=== PATIENT | male | born 1965 | race Caucasian/White ===

== ENCOUNTER 2017-05-22 02:16 | Observation (INO) | payer OTHER, SELFPAY ==
[2017-05-22] VITALS (26 sets, daily range): BP systolic 95–145; BP diastolic 55–88; PULSE 60–89; RESP 16–20; TEMP 36.6–37.3; O2SAT 93–100; BMI 24.7; BMI 23.6
--- NOTE | 2017-05-22 02:29 | XR_ITS ---
XR chest portable Ordering Physician: Alfredo Brooks MD Patient Age: 52 years: Male HISTORY: ITS.REASON: CHEST PAIN TECHNIQUE: PA and lateral chest COMPARISON :Previous PA and lateral chest film 12/14/2016. Also portable chest from September 2015 FINDINGS . Nothing definitely acute. No significant interval change. \ Mild chronic changes. Mild hyperexpansion most evident towards upper lung ascencio, right greater than left. Subtle accentuation lung markings towards the left infrahilar & left lung base region appear similar to previous studies, when technique considered. An and likely reflect mild chronic change. No convincing active infiltrate. Heart is normal size. Urinary artery stent noted. Rosa and mediastinal structures unchanged. Chest wall unremarkable. No pleural effusion. No pneumothorax. Stable calcified granuloma right lung base projected over the right fifth anterior rib and IMPRESSION: Stable chest nothing definitely acute
[2017-05-22 02:46] LABS: Basophils # 0.1 K/mm3 (0-0.2); Basophils % 0.6 % (0.1-2.0); Eosinophils # 0.3 K/mm3 (0.0-0.4); Eosinophils % 2.6 % (0.1-12.0); Hemoglobin 14.4 g/dL (14.1-18.0); Lymphocytes % 40.2 K/mm3 (10-50); Mean Corpuscular HGB Conc 32.8 g/dL (31.8-35.4); Mean Corpuscular Hemoglobin 29.3 pg (27.0-31.2); Mean Corpuscular Volume 89.4 fl (80-94); Mean Platelet Volume 8.5 fl (7.4-10.4); Monocytes # 0.7 K/mm3 (0.1-1.0); Monocytes % 5.3 % (1.7-9.3); Neutrophils # 6.4 K/mm3 (1.8-7.8); Neutrophils % 51.3 % (37.0-80.0); Platelet Count 260 K/mm3 (142-424); Red Blood Count 4.92 M/mm3 (4.60-6.20); White Blood Count 12.5 K/mm3 (4.8-10.8)
[2017-05-22 03:14] LABS: Alanine Aminotransferase 31 U/L (12-78); Albumin Level 3.8 gm/dL (3.4-5.0); Albumin/Globulin Ratio 1.2 (1.1-1.8); Alkaline Phosphatase 84 U/L (46-116); Amylase 96 U/L (25-125); Anion Gap 9.7 mEq/L (5-15); Aspartate Amino Transferase 16 U/L (15-37); Bilirubin,Total 0.4 mg/dL (0.2-1.0); Blood Urea Nitrogen 44 mg/dL (7-18); CKMB Relative Index 0.9 U/L (0-4.0); Calcium 8.9 mg/dL (8.5-10.1); Carbon Dioxide 29 mmol/L (21.0-32.0); Chloride 104 mmol/L (98-107); Creatine Kinase 76 U/L (39-308); Creatine Kinase MB 0.7 mg/ml (0.0-3.6); Creatinine Clearance Estimated 97 mL/min (0-300); Creatinine,Serum 0.98 mg/dL (0.70-1.30); Estimated Glomerular Filt Rate 80 ml/min (>60); GFR (African American) 97 ML/MIN (>60); Globulin 3.3 gm/dl (1.3-3.2); Glucose 117 mg/dL (74-106); Lipase 252 u/L (73-393); Potassium 3.7 mmoL/L (3.5-5.1); Sodium 139 mmol/L (136-145); Total Protein,Serum 7.1 gm/dL (6.4-8.2); Troponin I < 0.02 ng/ml (0.00-0.06)
[2017-05-22 03:22] LABS: Occult Blood,Stool Positive (Negative)
--- NOTE | 2017-05-22 03:34 | HMH.EDCP ---
ED Disposition Clinical Impression: Melena Chest pain Qualifiers: Chest pain type: other chest pain Qualified Code(s): R07.89 - Other chest pain Syncope Qualifiers: Syncope type: unspecified Qualified Code(s): R55 - Syncope and collapse Disposition: Admitted As Inpatient Condition on Discharge: Good Time of Disposition: 03:35 - Critical Care Critical Care Time: No Attestation: On 05/22/17, the high probability of a clinically significant, sudden or life threatening deterioration of the following system(s) required my full and direct attention, intervention and personal management. The time I documented below is in addition to time spent performing reported procedures but includes the following listed in this critical care notation. Medical Decision Making - Medical Records Medical records reviewed: Yes: I reviewed the patient's medical records. Vital Signs: 05/22/17 02:17 05/22/17 03:08 05/22/17 04:31 Temperature 97.8 F 97.8 F Temperature Source Oral Oral Pulse Rate 62 Pulse Rate [Right Brachial] 67 65 Respiratory Rate 16 16 20 Blood Pressure 130/88 Blood Pressure [Right Arm] 129/72 135/81 Blood Pressure Mean [Right Arm] 91 99 Blood Pressure Source Automatic Cuff Blood Pressure Source [Right Arm] Automatic Cuff Automatic Cuff Blood Pressure Position Supine Blood Pressure Position [Right Arm] Supine Supine 02 Sat by Pulse Oximetry 99 98 Oxygen Delivery Method Room Air Room Air Room Air 05/22/17 04:37 Temperature 97.8 F Temperature Source Oral Pulse Rate Pulse Rate [Right Brachial] 62 Respiratory Rate 20 Blood Pressure Blood Pressure [Right Arm] 130/88 Blood Pressure Mean [Right Arm] 102 Blood Pressure Source Blood Pressure Source [Right Arm] Automatic Cuff Blood Pressure Position Blood Pressure Position [Right Arm] Supine 02 Sat by Pulse Oximetry 97 Oxygen Delivery Method Room Air - Lab Data Lab results reviewed: Yes: I reviewed the patient's lab results. Lab Results 05/22/17 02:30: WBC 12.5 H, RBC 4.92, Hgb 14.4, Hct 44.0, MCV 89.4, MCH 29.3, MCHC 32.8, RDW 13.0, Plt Count 260, MPV 8.5, Neut % (Auto) 51.3, Lymph % (Auto) 40.2, [place] % (Auto) 5.3, Eos % (Auto) 2.6, Baso % (Auto) 0.6, Neut # (Auto) 6.4, Lymph # (Auto) 5.0 H, [place] # (Auto) 0.7, Eos # (Auto) 0.3, Baso # (Auto) 0.1 05/22/17 02:30: Sodium 139, Potassium 3.7, Chloride 104, Carbon Dioxide 29, Anion Gap 9.7, BUN 44 H, Creatinine 0.98, Estimated Creat Clear 97, Estimated GFR 80, Est GFR ( Amer) 97, Glucose 117 H, Calcium 8.9, Total Bilirubin 0.4, AST 16, ALT 31, Alkaline Phosphatase 84, Total Creatine Kinase 76, CK-MB (CK-2) 0.7, CK-MB (CK-2) Rel Index 0.9, Troponin I < 0.02, Total Protein 7.1, Albumin 3.8, Globulin 3.3 H, Albumin/Globulin Ratio 1.2, Amylase 96, Lipase 252 05/22/17 02:31: Stool Occult Blood Positive A Result diagrams: 05/22/17 02:30 05/22/17 02:30 Orders (Tests/Meds): ED MEDICATIONS Generic Name Dose Route Start Last Admin Trade Name Freq PRN Reason Stop Dose Admin Acetaminophen 1,000 mg 05/22/17 04:58 Tylenol 500mg Tablet PO 06/21/17 04:57 Q6HP PRN moderate pain Aspirin 81 mg 05/22/17 09:00 Aspirin 81mg Chewable Tablet PO 06/21/17 08:59 DAILY MIRE[place]LE Clopidogrel Bisulfate 75 mg 05/22/17 04:58 Plavix 75mg Tablet PO 06/21/17 04:57 ONCE [place] Sodium Chloride 1,000 mls @ 75 mls/hr 05/22/17 04:58 Sod Chlor 0.9% 1000ml Bag IV 06/21/17 04:57 .[id number] [place] Lisinopril 20 mg 05/22/17 04:58 Zestril 20mg Tab PO 06/21/17 04:57 QDAY [place] Nitroglycerin 0.4 mg 05/22/17 04:58 Nitrostat 0.4mg Sl Tablet SL 06/21/17 04:57 [id number] PRN Chest Pain Non-Formulary Medication 80 mg 05/22/17 04:58 Atorvastatin Calcium [Lipitor 80mg Tablet] PO 06/21/17 04:57 QDAY MIRE[place] Pantoprazole Sodium 40 mg 05/22/17 09:00 Protonix 40mg Vial IV 06/21/17 08:59 BID MIRE[place] Discontinued Medications
--- NOTE | 2017-05-22 03:38 | ED_ITS ---
ED Disposition Clinical Impression: Melena Chest pain Qualifiers: Chest pain type: other chest pain Qualified Code(s): R07.89 - Other chest pain Syncope Qualifiers: Syncope type: unspecified Qualified Code(s): R55 - Syncope and collapse Disposition: Admitted As Inpatient Condition on Discharge: Good Time of Disposition: 03:35 - Critical Care Critical Care Time: No Attestation: On 05/22/17, the high probability of a clinically significant, sudden or life threatening deterioration of the following system(s) required my full and direct attention, intervention and personal management. The time I documented below is in addition to time spent performing reported procedures but includes the following listed in this critical care notation. Medical Decision Making - Medical Records Medical records reviewed: Yes: I reviewed the patient's medical records. Vital Signs: 05/22/17 02:17 05/22/17 03:08 05/22/17 04:31 Temperature 97.8 F 97.8 F Temperature Source Oral Oral Pulse Rate 62 Pulse Rate [Right Brachial] 67 65 Respiratory Rate 16 16 20 Blood Pressure 130/88 Blood Pressure [Right Arm] 129/72 135/81 Blood Pressure Mean [Right Arm] 91 99 Blood Pressure Source Automatic Cuff Blood Pressure Source [Right Arm] Automatic Cuff Automatic Cuff Blood Pressure Position Supine Blood Pressure Position [Right Arm] Supine Supine 02 Sat by Pulse Oximetry 99 98 Oxygen Delivery Method Room Air Room Air Room Air 05/22/17 04:37 Temperature 97.8 F Temperature Source Oral Pulse Rate Pulse Rate [Right Brachial] 62 Respiratory Rate 20 Blood Pressure Blood Pressure [Right Arm] 130/88 Blood Pressure Mean [Right Arm] 102 Blood Pressure Source Blood Pressure Source [Right Arm] Automatic Cuff Blood Pressure Position Blood Pressure Position [Right Arm] Supine 02 Sat by Pulse Oximetry 97 Oxygen Delivery Method Room Air - Lab Data Lab results reviewed: Yes: I reviewed the patient's lab results. Lab Results 05/22/17 02:30: WBC 12.5 H, RBC 4.92, Hgb 14.4, Hct 44.0, MCV 89.4, MCH 29.3, MCHC 32.8, RDW 13.0, Plt Count 260, MPV 8.5, Neut % (Auto) 51.3, Lymph % (Auto) 40.2, [place] % (Auto) 5.3, Eos % (Auto) 2.6, Baso % (Auto) 0.6, Neut # (Auto) 6.4 , Lymph # (Auto) 5.0 H, [place] # (Auto) 0.7, Eos # (Auto) 0.3, Baso # (Auto) 0.1 05/22/17 02:30: Sodium 139, Potassium 3.7, Chloride 104, Carbon Dioxide 29, Anion Gap 9.7, BUN 44 H, Creatinine 0.98, Estimated Creat Clear 97, Estimated GFR 80, Est GFR ( Amer) 97, Glucose 117 H, Calcium 8.9, Total Bilirubin 0.4, AST 16, ALT 31, Alkaline Phosphatase 84, Total Creatine Kinase 76, CK-MB ( CK-2) 0.7, CK-MB (CK-2) Rel Index 0.9, Troponin I < 0.02, Total Protein 7.1, Albumin 3.8, Globulin 3.3 H, Albumin/Globulin Ratio 1.2, Amylase 96, Lipase 252 05/22/17 02:31: Stool Occult Blood Positive A Result diagrams: 05/22/17 02:30 05/22/17 02:30 Orders (Tests/Meds): ED MEDICATIONS Generic Name Dose Route Start Last Admin Trade Name Freq PRN Reason Stop Dose Admin Acetaminophen 1,000 mg 05/22/17 04:58 Tylenol 500mg Tablet PO 06/21/17 04:57 Q6HP PRN moderate pain Aspirin 81 mg 05/22/17 09:00 Aspirin 81mg Chewable Tablet PO 06/21/17 08:59 DAILY MIRE[place]
--- NOTE | 2017-05-22 03:43 | PC.NURSE ---
TO BE ADMITTED TO [facility] TO [facility] WITH DX SYNCOPE AND CHEST PAIN.
--- NOTE | 2017-05-22 04:05 | PC.NURSE ---
TO BE ADMITTED TO ROOM 212. REPORT CALLED TO BRUNA GRACE RN
[2017-05-22 06:09] LABS: Microscopic, Urine URINE MICROSCOPIC (MICROSCOPIC)
[2017-05-22 06:11] LABS: Appearance,Urine CLEAR (Clear); Bilirubin,Urine Negative (Negative); Blood, Urine Negative (Negative); Color,Urine YELLOW (Yellow); Glucose,Urine (UA) Negative (Negative); Ketones,Urine Negative (Negative); Leukocyte Esterase,Urine Negative (Negative); Nitrate,Urine Negative (Negative); PH,Urine 5.5 (5.0-8.5); Protein,Urine Negative (Negative); Urobilinogen,Urine 0.2 EU/dl (0.2)
[2017-05-22 06:19] LABS: Bacteria,Urine Trace /lpf; Squamous Epithelial Cell,Urine Occasional #/hpf (0-5); WBC,Urine Occasional #/hpf (0-3)
--- NOTE | 2017-05-22 06:30 | PC.NURSE ---
ERMA Crews, notified of order, for consult with Dr Paulson
[2017-05-22 06:36] LABS: Basophils % 0.3 % (0.1-2.0); Eosinophils # 0.1 K/mm3 (0.0-0.4); Eosinophils % 0.7 % (0.1-12.0); Hematocrit 37.8 % (42.0-52.0); Lymphocytes # 1.7 K/mm3 (0.7-4.5); Lymphocytes % 16.7 K/mm3 (10-50); Mean Corpuscular HGB Conc 33.7 g/dL (31.8-35.4); Mean Corpuscular Hemoglobin 29.8 pg (27.0-31.2); Mean Corpuscular Volume 88.4 fl (80-94); Mean Platelet Volume 8.8 fl (7.4-10.4); Monocytes # 0.4 K/mm3 (0.1-1.0); Monocytes % 3.8 % (1.7-9.3); Neutrophils % 78.5 % (37.0-80.0); Platelet Count 217 K/mm3 (142-424); Red Blood Count 4.27 M/mm3 (4.60-6.20); Red Cell Distribution Width 12.9 % (11.5-17.5); White Blood Count 10.2 K/mm3 (4.8-10.8)
[2017-05-22 06:44] LABS: Hemoglobin 12.8 g/dL (14.1-18.0)
--- NOTE | 2017-05-22 06:46 | CA_ITS ---
PROCEDURE: 2-D M-mode and color Doppler study INDICATIONS FOR THE TEST: Chest pain X COPD Heart Murmur Tobacco SmokingEX Palpitations Fatigue SyncopeX Edema HypertensionXDiabetes Mellitus Rheumatic Fever SOBXDOE Obesity Hyperlipidemia Family History HD Additional History CAD PATIENT INFORMATION HEIGHT: 70 WEIGHT:165 GENDER: Male B/P:130/88 2-D/M-MODE INTERPRETATION: 2-D MEASUREMENTS OBSERVED VALUES IN CMS Right Ventricular Dimension (RVDd) 2.0 Interventricular Septum (Thickness)(IVsd) 1.0 Left Ventricular Internal Dimensions(LVIDd) 5.4 Left Ventricular Posterior Wall (Thickness)(LVPWd) 1.2 Aortic Root 4.2 Aortic Cusp Separation 2.4 Left Atrial Dimensions (LAD) 2.0 2D 1. Left atrium is qualitatively mildly enlarged, left ventricle is normal size, there is preserved left ventricular systolic function, visually estimated ejection fraction 55% with no obvious regional wall motion abnormality, there is mild concentric left ventricular hypertrophy present. 2. The right atrium and right ventricle are normal size and contractility. 3. The aortic valve is minimally thickened and fibrosed. 4. The mitral and tricuspid valve leaflets are minimally thickened. 5. The pulmonic valve is poorly visualized. 6. No significant pericardial effusion noted. DOPPLER INTERROGATION: Doppler interrogation of the aortic, mitral and tricuspid valvular presence of trace aortic, mild mitral and tricuspid regurgitation, tricuspid and jet velocity insufficient for calculation of the right ventricular systolic pressure, grade 1 diastolic dysfunction seen without tissue Doppler evidence of raised left atrial pressure. CONCLUSION: 1. Mildly left atrium, normal left ventricular size, mild concentric left ventricular hypertrophy, visually estimated ejection fraction 55% with no obvious regional wall motion abnormality, grade 1 diastolic dysfunction seen without tissue Doppler evidence of raised left atrial pressure. 2. Trace aortic, mild mitral and tricuspid regurgitation 3. No significant pericardial effusion noted.
[2017-05-22 06:55] LABS: Alanine Aminotransferase 29 U/L (12-78); Albumin Level 3.6 gm/dL (3.4-5.0); Albumin/Globulin Ratio 1.2 (1.1-1.8); Alkaline Phosphatase 76 U/L (46-116); Anion Gap 10.6 mEq/L (5-15); Aspartate Amino Transferase 13 U/L (15-37); Bilirubin,Total 0.3 mg/dL (0.2-1.0); Blood Urea Nitrogen 37 mg/dL (7-18); CKMB Relative Index 1.1 U/L (0-4.0); Calcium 8.1 mg/dL (8.5-10.1); Carbon Dioxide 25 mmol/L (21.0-32.0); Chloride 106 mmol/L (98-107); Chol/HDL Ratio 2.5 (1-3.5); Cholesterol 112 mg/dL (140-200); Creatine Kinase 61 U/L (39-308); Creatine Kinase MB 0.7 mg/ml (0.0-3.6); Creatinine Clearance Estimated 112 mL/min (0-300); Creatinine,Serum 0.82 mg/dL (0.70-1.30); Estimated Glomerular Filt Rate 99 ml/min (>60); GFR (African American) 119 ML/MIN (>60); Globulin 2.9 gm/dl (1.3-3.2); Glucose 101 mg/dL (74-106); HDL Cholesterol 45 mg/dL (27-67); LDL Cholesterol 36 mg/dL (0-130); Potassium 4.6 mmoL/L (3.5-5.1); Sodium 137 mmol/L (136-145); Total Protein,Serum 6.5 gm/dL (6.4-8.2); Triglycerides 155 mg/dL (30-200); Troponin I < 0.02 ng/ml (0.00-0.06); VLDL Cholesterol 31 mg/dL (0-40)
--- NOTE | 2017-05-22 07:20 | P.CONPHA_ITS ---
[facility] VTE Monitoring - Patient Demographics Admission date: 05/22/17 Report Date: 05/22/17 Time: 07:20 Allergies/Adverse Reactions: Patient Allergies No Known Allergies Allergy (Verified 05/22/17 02:26) Height: 1.78 m Weight: 74.871 kg Patient Problems: Current Active Problems Chest pain (Acute) Syncope (Acute) Melena (Acute) - VTE Risk Labs: VTE Related Lab Results Hgb 12.8 g/dL (14.1-18.0) L D 05/22/17 06:15 Hct 37.8 % (42.0-52.0) L 05/22/17 06:15 Plt Count 217 K/mm3 (142-424) 05/22/17 06:15 BUN 37 mg/dL (7-18) H 05/22/17 06:15 Creatinine 0.82 mg/dL (0.70-1.30) 05/22/17 06:15 Estimated Creat Clear 112 mL/min (0-300) 05/22/17 06:15 Was VTE Risk Assessment Performed: Yes VTE Score: 2 VTE Risk Level: Low Risk - Prophylaxis VTE Prophylaxis Ordered?: Yes Types of VTE Prophylaxis: TEDS Knee High Location of Applied Device: Bilateral Lower Extremeties - VTE Diagnosis Confirmed Treatment or plan recommended: Continue Current Treatment
--- NOTE | 2017-05-22 07:20 | PC.NURSE ---
REPORT GIVEN TO Mariah MENA W/C
--- NOTE | 2017-05-22 07:38 | PC.NURSE ---
Received report from Raissa Kapadia RN
--- NOTE | 2017-05-22 07:57 | HMH.CNCARD ---
History of Present Illness Consult date: 05/22/17 Requesting physician: Alfredo Brooks Consult reason: chest pain Chief complaint: chest pain Additional Medical History:: 1. Coronary artery disease A. Left heart catheterization, 09/29/2015, critical large second OM disease, severe mid LAD disease and moderate to severe RCA disease with normal ejection fraction and normal left ventricular end-diastolic pressure. B. Status post drug-eluting stent to LAD and second OM, 09/2015, [facility] in [place], [place]. Dr. Arvin Paulson. RCA FFR did not meet criteria for stenting. Medical therapy. 2. Tobacco use, started age 14 discontinued 2017 with average of 1.5 packs per day. 3. Hypertension 4. Hyperlipidemia History of present illness: 52-year-old white male with known coronary artery disease, hypertension, and hyperlipidemia admitted through the emergency department last night for chest pain and melena. Patient relates getting up from sleep at about midnight to go to the bathroom, while urinating, he became lightheaded and diaphoretic. He denies any chest pain at that time. He did walk from the bathroom a couple of rooms back to the bedroom and became severely weak to the point that he was unable to get into the bed. With his 's assistance he went down to the floor and states that some point he was given a sublingual nitroglycerin for chest pain with relief of symptoms. Thereafter, patient relates he went back to the bathroom and had a bowel movement. He noticed a black stool which alarmed him and decided to come to the emergency department for further evaluation. Stool was noted to be positive for blood in ER. Due to the symptoms, patient was kept for further evaluation. He denies any further chest pain since hospitalization. He relates no exertional chest pain or shortness of breath recently with strenuous activity. Patient had a stress test in January of last year showing no evidence of ischemia with normal ejection fraction and no wall motion abnormalities. His last echocardiogram was in October 2016 showing normal ejection fraction with mild concentric LVH and without significant valve disease. Since his coronary stenting in 2015 the patient has been on dual antiplatelet therapy but has not taken his proton pump inhibitor. He denies any use of NSAIDs. Cardiology consulted for evaluation and recommendation. Patient's cardiac troponins have returned normal overnight and EKG shows sinus rhythm without acute changes. [facility] History Medical History: Reports:: Atherosclerotic Heart Disease, Hypertension Denies:: Cancer, Diabetes Mellitus Type 1, Diabetes Mellitus Type 2, Internal Pacemaker, MRSA Other Medical History: Reports: Other (Heart attack.) Other Surgeries: Yes: Coronary Stent. No: Pacemaker Amputation: No Fractures: No - *Social History Educational Level: Attended High School Smoking Status: Former smoker Tobacco Type: cigarettes # Packs/Day (cigarettes): 2 Smoking End Date: 12/24/16 Alcohol Intake: never Alcohol Intake Frequency:: 3 or more drinks per day Occupational Status: employed Housing: house Household Members: spouse - Psychiatric History Expresses thoughts of harming self/others: None Suicide Plan Description: No Plan *Family Hx:: Cancer, Hypertension Meds Home Medications Medication Instructions Recorded Confirmed Type atorvastatin 80 mg tablet 80 mg PO DAILY 04/26/17 05/22/17 History clopidogrel 75 mg tablet 75 mg PO DAILY 04/26/17 05/22/17 History lisinopril 20 mg tablet 20 mg PO DAILY 04/26/17 05/22/17 History Aspirin [Aspirin 81mg chewable 81 mg PO DAILY 05/22/17 05/22/17 History tab] Allergies Allergy/AdvReac Type Severity Reaction Status Date / Time No Known Allergies Allergy Verified 05/22/17 02:26 Review of Systems - *Cardiovascular Reports chest pain, Denies shortness of breath, Denies shortness of breath with activity - *Respiratory Carlos
--- NOTE | 2017-05-22 07:59 | PC.NURSE ---
Received verbal request from Vivian Thomas APRN, to assess pt's swallowing response at bedside. Pt received bedside swallow test and was effectively swallowing pudding and applesauce /s s/s of aspiration. Vivian requested AM meds be crushed and given with pudding/applesauce and continue with speech therapy evaluation today. Pt to remain NPO except meds.
--- NOTE | 2017-05-22 08:02 | PC.NURSE ---
Pt has refused [facility].
--- NOTE | 2017-05-22 08:41 | HMH.HP ---
*Admission Date: 05/22/17 *Chief complaint: Chest pain/syncope/melena *History of present illness: 52-year-old white male with history of cardiac disease and stent placement one year ago, who has been in his normal state of health over the past year, quit smoking in December with normal cardiac Myoview testing in January, and since that time has done well the last night after getting up to use the restroom had an episode of dizziness that culminated in possible syncope with some questionable chest pain. Patient took nitroglycerin and this resolved some symptoms but then he went to the restroom where he had a large melanotic stool. This alarmed him, and he called EMS. Emergency department workup is noted. Patient was admitted overnight for rule out ID and further lab testing. This morning he feels great. Has had no further stools, denies history of bright red blood per rectum, vomiting, coffee-ground emesis. He has had no previous GI workup. Cardiac workup reviewed as noted. [facility] History Medical History: Reports:: Atherosclerotic Heart Disease, Hypertension Denies:: Cancer, Diabetes Mellitus Type 1, Diabetes Mellitus Type 2, Internal Pacemaker, MRSA Other Medical History: Reports: Other (Heart attack.) Other Surgeries: Yes: Coronary Stent. No: Pacemaker Amputation: No Fractures: No - *Social History Educational Level: Attended High School Smoking Status: Former smoker Tobacco Type: cigarettes # Packs/Day (cigarettes): 2 Smoking End Date: 12/24/16 Alcohol Intake: never Alcohol Intake Frequency:: 3 or more drinks per day Occupational Status: employed Housing: house Household Members: spouse - Psychiatric History Expresses thoughts of harming self/others: None Suicide Plan Description: No Plan *Family Hx:: Cancer, Hypertension Review of Systems - Review of Systems Review of systems:: unable to obtain, other, pertinent systems reviewed and negative unless documented below - Constitutional Denies lack of energy, Denies malaise - *Cardiovascular Denies chest pain, Denies chest pain at rest, Denies chest pain with activity, Denies irregular heart rhythm - *Gastrointestinal Reports change in stools, Reports black, tarry stools, Denies abdominal pain, Denies belching, Denies bloating, Denies change in bowel habits, Denies coffee ground vomit, Denies constipation Comments: Melena ?1 episode only - *Genitourinary Denies difficulty urinating - *Neurologic Reports dizziness, Reports other (syncope) Meds Home Medications Medication Instructions Recorded Confirmed Type atorvastatin 80 mg tablet 80 mg PO DAILY 04/26/17 05/22/17 History clopidogrel 75 mg tablet 75 mg PO DAILY 04/26/17 05/22/17 History lisinopril 20 mg tablet 20 mg PO DAILY 04/26/17 05/22/17 History Aspirin [Aspirin 81mg chewable 81 mg PO DAILY 05/22/17 05/22/17 History tab] Allergies Allergy/AdvReac Type Severity Reaction Status Date / Time No Known Allergies Allergy Verified 05/22/17 02:26 Exam Vital signs and Labs for Last 24 Hours: Temp Pulse Resp BP Pulse Ox 99.2 F 69 18 137/80 100 05/22/17 07:42 05/22/17 07:42 05/22/17 07:42 05/22/17 07:42 05/22/17 07:42 Laboratory Results - last 24 hr 05/22/17 06:00: Urine Color Yellow, Urine Appearance Clear, Urine pH 5.5, Ur Specific [place] 1.010, Urine Protein Negative, Urine Glucose (UA) Negative, Urine Ketones Negative, Urine Blood Negative, Urine Nitrate Negative, Urine Bilirubin Negative, Urine Urobilinogen 0.2, Ur Leukocyte Esterase Negative, Urine WBC Occasional, Ur Squamous Epith Cells Occasional, Urine Bacteria Trace 05/22/17 06:15: WBC 10.2, RBC 4.27 L, Hgb 12.8 L D, Hct 37.8 L, MCV 88.4, MCH 29.8, MCHC 33.7, RDW 12.9, Plt Count 217, MPV 8.8, Neut % (Auto) 78.5, Lymph % (Auto) 16.7, [place] % (Auto) 3.8, Eos % (Auto) 0.7, Baso % (Auto) 0.3, Neut # (Auto) 8.0 H, Lymph # (Auto) 1.7, [place] # (Auto) 0.4, Eos # (Auto) 0.1, Baso # (Auto) 0.0 05/22/17 06:15: Sodium
--- NOTE | 2017-05-22 08:44 | P.HP_ITS ---
*Admission Date: 05/22/17 *Chief complaint: Chest pain/syncope/melena *History of present illness: 52-year-old white male with history of cardiac disease and stent placement one year ago, who has been in his normal state of health over the past year, quit smoking in December with normal cardiac Myoview testing in January, and since that time has done well the last night after getting up to use the restroom had an episode of dizziness that culminated in possible syncope with some questionable chest pain. Patient took nitroglycerin and this resolved some symptoms but then he went to the restroom where he had a large melanotic stool. This alarmed him, and he called EMS. Emergency department workup is noted. Patient was admitted overnight for rule out VT and further lab testing. This morning he feels great. Has had no further stools, denies history of bright red blood per rectum, vomiting, coffee-ground emesis. He has had no previous GI workup. Cardiac workup reviewed as noted. [facility] History Medical History: Reports:: Atherosclerotic Heart Disease, Hypertension Denies:: Cancer, Diabetes Mellitus Type 1, Diabetes Mellitus Type 2, Internal Pacemaker, MRSA Other Medical History: Reports: Other (Heart attack.) Other Surgeries: Yes: Coronary Stent. No: Pacemaker Amputation: No Fractures: No - *Social History Educational Level: Attended High School Smoking Status: Former smoker Tobacco Type: cigarettes # Packs/Day (cigarettes): 2 Smoking End Date: 12/24/16 Alcohol Intake: never Alcohol Intake Frequency:: 3 or more drinks per day Occupational Status: employed Housing: house Household Members: spouse - Psychiatric History Expresses thoughts of harming self/others: None Suicide Plan Description: No Plan *Family Hx:: Cancer, Hypertension Review of Systems - Review of Systems Review of systems:: unable to obtain, other, pertinent systems reviewed and negative unless documented below - Constitutional Denies lack of energy, Denies malaise - *Cardiovascular Denies chest pain, Denies chest pain at rest, Denies chest pain with activity, Denies irregular heart rhythm - *Gastrointestinal Reports change in stools, Reports black, tarry stools, Denies abdominal pain, Denies belching, Denies bloating, Denies change in bowel habits, Denies coffee ground vomit, Denies constipation Comments: Melena ?1 episode only - *Genitourinary Denies difficulty urinating - *Neurologic Reports dizziness, Reports other (syncope) Meds Home Medications Medication Instructions Recorded Confirmed Type atorvastatin 80 mg tablet 80 mg PO DAILY 04/26/17 05/22/17 History clopidogrel 75 mg tablet 75 mg PO DAILY 04/26/17 05/22/17 History lisinopril 20 mg tablet 20 mg PO DAILY 04/26/17 05/22/17 History Aspirin [Aspirin 81mg chewable 81 mg PO DAILY 05/22/17 05/22/17 History tab] Allergies Allergy/AdvReac Type Severity Reaction Status Date / Time No Known Allergies Allergy Verified 05/22/17 02:26 Exam Vital signs and Labs for Last 24 Hours: Temp Pulse Resp BP Pulse Ox 99.2 F 69 18 137/80 100 05/22/17 07:42 05/22/17 07:42 05/22/17 07:42 05/22/17 07:42 05/22/17 07:42 Laboratory Results - last 24 hr 05/22/17 06:00: Urine Color Yellow, Urine Appearance Clear, Urine pH 5.5, Ur Specific [place] 1.010, Urine Protein Negative, Urine Glucose (UA) Negative, Urine Ketones Negative, Urine Blood Negative, U
--- NOTE | 2017-05-22 11:41 | PC.NURSE ---
Received a call from Aida, from scope room, who informed this nurse that pt will be scoped this afternoon. This nurse informed Aida that the patient has not met with physician and will not have a signed consent on chart. Aida asked this nurse to leave a sticky note on chart stating that consent needs to be signed.
[2017-05-22 12:02] LABS: CKMB Relative Index 0.8 U/L (0-4.0); Creatine Kinase 59 U/L (39-308); Creatine Kinase MB 0.5 mg/ml (0.0-3.6); Troponin I < 0.02 ng/ml (0.00-0.06)
--- NOTE | 2017-05-22 14:55 | HMH.ANESCL ---
[facility] Anesthesia Checklist - Patient Identification Patient Identification: Arm Band, Verbal (Name & ) - Structural Data Admitted From: Inpatient Planned Operative Procedure/s: egd Consent for Planned Operative Procedure(s) Verified: Yes Verified Documents: Surgical Consent - NPO Status Verified Time NPO: 00:00 - Chart Verification Results Verified: CBC, BMP - Additional verifications Patient : No Anesthesia Reactions: No Hx Blood Transfusions: No Blood Transfusion Reaction: No Cephalosporin Allergy: No Previous Colonoscopy: No - Cardiovascular Assessment Heart Sounds: S1 & S2 Pulse Strength: Baseline Pulse Rhythm: Regular Peripheral Edema: No - Airway Assessment C-Spine Mobility Assessed: Yes TMJ Mobility Assessed: Yes Dentition: Edentulous - Neurological Assessment Level of Consciousness: Awake, Alert, Appropriate Hx Seizures: No Numbness or tingling in extremities: No - Anesthesia Plan Anesthesia Risk discussed: Yes ASA Class: III Anesthesia Type: MAC [facility] Anesthesia HX I have reviewed the patient's past medical history: Yes Medical History: Reports:: Atherosclerotic Heart Disease, Coronary Artery Disease, Hyperlipidemia, Hypertension Denies:: Cancer, Diabetes Mellitus Type 1, Diabetes Mellitus Type 2, Internal Pacemaker, MRSA Other Medical History: Reports: Other (Heart attack.) Other Surgeries: Yes: Coronary Stent. No: Pacemaker Amputation: No Fractures: No *Family Hx:: Cancer, Hypertension
--- NOTE | 2017-05-22 15:45 | PC.NURSE ---
pt off unit at this time. down for a procedure.
--- NOTE | 2017-05-22 15:50 | P.PCN_ITS ---
[facility] Procedure Note Procedure Note:: Upper Endoscopy Procedure Report: Esophagogastroduodenoscopy with cold biopsies Endoscopost: Christoph Styles II, MD Referring Physician: Alfredo Brooks M.D. Date of Procedure: May 22, 2017 Equipment: Olympus GIF 180 standard upper endoscope Sedation: MAC sedation Indications: Mr. Mendoza is a 52-year-old man who presented melanotic stool. He also had dizziness with syncope. In the emergency department his hemoglobin and hematocrit were 12.8 and 37.8. The patient did have some initial epigastric discomfort/dyspepsia. He had a coronary stent placed one year ago and was on Plavix and baby aspirin 81 mg. He has had no prior gastrointestinal bleed or upper endoscopy. He reports no NSAIDs. He did quit smoking in December 2016. Procedure: Prior to the procedure, a history and physical exam was performed, and patient' s medications and allergies were reviewed. The risks, benefits and alternatives of the sedation and procedure were discussed with the patient. All questions were answered and informed consent was obtained. The patient was brought to the procedure room. Patient identification and proposed procedure were verified by the physician and the nurse. The patient was placed in a left lateral decubitus position and the scope was passed under direct vision. Throughout the procedure, the patient's blood pressure, pulse, and oxygen saturations were monitored continuously. The upper GI endoscopy was accomplished without difficulty. The patient tolerated the procedure well. Findings: The scope was passed directly into the upper esophagus and advanced to the third portion of the duodenum. The post bulbar duodenum was normal. Within the bulb there was patchy erythema and edema consistent with moderate peptic duodenitis. There was also a clean based 7 mm peptic ulcer of the duodenal bulb along the anterior lateral wall of the duodenal bulb. The scope was withdrawn through a normal pylorus into the stomach. There was some linear erythema of the antrum consistent with mild peptic gastritis. The remainder of the antrum, body and fundus of the stomach were grossly normal. Upon retroflexion there was a small hiatal hernia. 2 biopsies were taken in the antrum and along the lesser curvature for histology to rule out gastritis and/ or H pylori. The scope was then withdrawn into the esophagus. There was a serrated Z line. A single biopsy was taken at the GE junction to rule out intestinal metaplasia/short segment Villafuerte's. The remainder of the esophageal mucosa was normal. Impression: 1. Clean-based duodenal ulcer (7 mm ulcer along the anterior lateral wall of the duodenal bulb) 2. Peptic duodenitis 3. Mild peptic gastritis 4. Nonerosive GERD with very small sliding hiatal hernia Plan: I do feel that the patient's bleeding was secondary to the duodenal ulcer. I would continue omeprazole twice daily and check biopsies for H. pylori. The patient can begin to advance diet today and should be able to go home later today or in the morning. I would resume baby aspirin and Plavix immediately because of his coronary stent.
--- NOTE | 2017-05-22 16:05 | PC.NURSE ---
Pt has been A&Ox3 this shift. VSS. Afebrile. Denies pain. Heart rate reg. Lungs CTA. Abd soft and nontender /c active BS x4 quads. Pt denies difficulty with B/B. Pt independently ambulates to BR. (L)AC IV patent and infusing 0.9%NaCl @ 75ml/hr /s difficulty or s/s of infiltration/infection at insertion site. At time of this documentation pt is off floor for an EGD. Will continue to monitor pt's status.
--- NOTE | 2017-05-22 17:06 | PC.NURSE ---
1613 - Received report from Renetta Braxton RN. 1625 - Pt returned to room 212 via bed accompanied by post-op nurses. Pt A&Ox3 in NAD. VSS. Afebrile. O2 sats on RA 96%. Heart rate reg. Lungs CTA. Abd soft, non-tender /c active BS x4 quads. Pt taking PO fluids /s difficulty. No c/o N/V. (L)AC IV infusing /s difficulty. No s/s of infiltration. Pt denies and c/o at this time. Will continue to monitor.
--- NOTE | 2017-05-22 17:29 | PC.NURSE ---
Pt eating dinner. No c/o verbalized at this time.
--- NOTE | 2017-05-22 18:59 | PC.NURSE ---
Report given to Carlitos Rdz RN
[2017-05-23] VITALS: BP 102/54; PULSE 60; PULSE 63; RESP 18; TEMP 36.4; O2SAT 99
[2017-05-23 04:00] VITALS: BP 107/57; PULSE 65; PULSE 72; RESP 18; TEMP 36.6; O2SAT 100
--- NOTE | 2017-05-23 04:36 | PC.NURSE ---
Patient laying in bed resting. Has slept most of shift. Denies any chest pain. Has been NSR on Tele. Is Saline Locked per patient request. Is drinking plenty. Lungs are clear, resp even and non labored. Staes He is ready to go home. Has no needs at this time. Bed locked in low position, side rails up x 2. Call light within reach. Will continue to monitor.
--- NOTE | 2017-05-23 07:36 | PC.NURSE ---
Report received from Carlitos Rdz RN.
[2017-05-23 07:40] VITALS: BP 107/66; PULSE 66; RESP 18; TEMP 36.5; O2SAT 98
[2017-05-23 08:00] VITALS: PULSE 70
--- NOTE | 2017-05-23 09:12 | P.DS_ITS ---
General - General Admission date: 05/22/17 Discharge date: 05/23/17 HPI HPI: 52-year-old white male with history of cardiac disease and stent placement one year ago, who has been in his normal state of health over the past year, quit smoking in December with normal cardiac Myoview testing in January, and since that time has done well the last night after getting up to use the restroom had an episode of dizziness that culminated in possible syncope with some questionable chest pain. Patient took nitroglycerin and this resolved some symptoms but then he went to the restroom where he had a large melanotic stool. This alarmed him, and he called EMS. Emergency department workup is noted. Patient was admitted overnight for rule out MD and further lab testing. This morning he feels great. Has had no further stools, denies history of bright red blood per rectum, vomiting, coffee-ground emesis. He has had no previous GI workup. Cardiac workup reviewed as noted. Objective Vital signs: Temp Pulse Resp BP Pulse Ox 97.7 F 70 18 107/66 98 05/23/17 07:40 05/23/17 08:00 05/23/17 07:40 05/23/17 07:40 05/23/17 07:40 Narrative: Alert and oriented x3. Rate and rhythm regular. LS clear and equal. Abdomen soft and nontender Hospital Course Hospital Course: Patient was admitted for further evaluation. Cardiology was consulted for his reported chest pain who felt symptoms were not cardiac in nature. Echo was obtained which showed trace MR/TR/AR with EF 55%. Dr. Styles was consulted due to his melena and epigastric symptoms. Patient was taken for EGD which showed a duodenal ulcer and mild gastritis/duodenitis. Biopsy for H. pylori was obtained and is pending. No acute bleeding was noted. Dr. Styles recommended PPI BID and to resume plavix and aspirin d/t his extensive cardiac history. Patient's diet was advanced which he has tolerated well. He has not had any further melanous stools or dizziness. He is feeling well and ready to go home. Discharge home on omeprazole BID. Ok to resume aspirin and plavix. See medication reconciliation for complete list. FU with myself in one week in [place] office. Results Labs on day of discharge: Labs from last 24 hours 05/22/17 11:15 Total Creatine Kinase 59 CK-MB (CK-2) 0.5 D CK-MB (CK-2) Rel Index 0.8 Troponin I < 0.02 Discharge Plan - Patient Discharge Instructions ACTIVITY: Continue current activity DIET: continue same diet - Follow up Plan Follow up with: Lien Daniel APRN [Nurse Practitioner] - 1 week Unknown provider or service follow up:: Dr. Styles 2 weeks Disposition: Home, Self-Retirement Medications: Home Medications Medication Instructions Recorded Confirmed Type atorvastatin 80 mg tablet 80 mg PO DAILY 04/26/17 05/22/17 History clopidogrel 75 mg tablet 75 mg PO DAILY 04/26/17 05/22/17 History lisinopril 20 mg tablet 20 mg PO DAILY 04/26/17 05/22/17 History Aspirin [Aspirin 81mg chewable 81 mg PO DAILY 05/22/17 05/22/17 History tab] Prescriptions/Medication Reconciliation: New Omeprazole [Omeprazole 20mg Capsule] 20 mg PO BID 30 Days #60 cap Continue clopidogrel 75 mg tablet 75 mg PO DAILY atorvastatin 80 mg tablet 80 mg PO DAILY lisinopril 20 mg tablet 20 mg PO DAILY Aspirin [Aspirin 81mg chewable tab] 81 mg PO DAILY
--- NOTE | 2017-06-15 09:48 | P.CONS_ITS ---
History of Present Illness Consult date: 05/22/17 Requesting physician: Alfredo Brooks Consult reason: chest pain Chief complaint: chest pain Additional Medical History:: 1. Coronary artery disease A. Left heart catheterization, 09/29/2015, critical large second OM disease , severe mid LAD disease and moderate to severe RCA disease with normal ejection fraction and normal left ventricular end-diastolic pressure. B. Status post drug-eluting stent to LAD and second OM, 09/2015, [facility] in [place], [place]. Dr. Arvin Paulson. RCA FFR did not meet criteria for stenting. Medical therapy. 2. Tobacco use, started age 14 discontinued 2017 with average of 1.5 packs per day. 3. Hypertension 4. Hyperlipidemia History of present illness: 52-year-old white male with known coronary artery disease, hypertension, and hyperlipidemia admitted through the emergency department last night for chest pain and melena. Patient relates getting up from sleep at about midnight to go to the bathroom, while urinating, he became lightheaded and diaphoretic. He denies any chest pain at that time. He did walk from the bathroom a couple of rooms back to the bedroom and became severely weak to the point that he was unable to get into the bed. With his 's assistance he went down to the floor and states that some point he was given a sublingual nitroglycerin for chest pain with relief of symptoms. Thereafter, patient relates he went back to the bathroom and had a bowel movement. He noticed a black stool which alarmed him and decided to come to the emergency department for further evaluation. Stool was noted to be positive for blood in ER. Due to the symptoms, patient was kept for further evaluation. He denies any further chest pain since hospitalization. He relates no exertional chest pain or shortness of breath recently with strenuous activity. Patient had a stress test in January of last year showing no evidence of ischemia with normal ejection fraction and no wall motion abnormalities. His last echocardiogram was in October 2016 showing normal ejection fraction with mild concentric LVH and without significant valve disease. Since his coronary stenting in 2015 the patient has been on dual antiplatelet therapy but has not taken his proton pump inhibitor. He denies any use of NSAIDs. Cardiology consulted for evaluation and recommendation. Patient's cardiac troponins have returned normal overnight and EKG shows sinus rhythm without acute changes. [facility] History Medical History: Reports:: Atherosclerotic Heart Disease, Hypertension Denies:: Cancer, Diabetes Mellitus Type 1, Diabetes Mellitus Type 2, Internal Pacemaker, MRSA Other Medical History: Reports: Other (Heart attack.) Other Surgeries: Yes: Coronary Stent. No: Pacemaker Amputation: No Fractures: No - *Social History Educational Level: Attended High School Smoking Status: Former smoker Tobacco Type: cigarettes # Packs/Day (cigarettes): 2 Smoking End Date: 12/24/16 Alcohol Intake: never Alcohol Intake Frequency:: 3 or more drinks per day Occupational Status: employed Housing: house Household Members: spouse - Psychiatric History Expresses thoughts of harming self/others: None Suicide Plan Description: No Plan *Family Hx:: Cancer, Hypertension Meds Home Medications Medication Instructions Recorded Confirmed Type atorvastatin 80 mg tablet 80 mg PO DAILY 04/26/17 05/22/17 History clopidogrel 75 mg tablet 75 mg PO DAILY 04/26/17 05/22/17 History lisinopril 20 mg tablet 20 mg PO DAILY 04/26/17 05/22/17 History Aspirin [Aspirin 81mg chewa
== END 2017-05-23 10:15 | disposition home or self-care (01) ==
LOC: ER 03:36 → 2ND 06:34
PROVIDERS: Internal Medicine Gastroenterology; Admitting Provider Internal Medicine Adolescent Medicine; Emergency Provider Emergency Medicine; Visit Provider Internal Medicine Adolescent Medicine
PROC: 0DJ08ZZ Inspection of Upper Intestinal Tract, Via Natural or Artificial Opening Endoscopic (ICD-10-PCS; CPT 43235; principal; 2017-05-22 13:00)
DX: I25.10 Atherosclerotic heart disease of native coronary artery without angina pectoris (principal); K92.1 Melena; R55 Syncope and collapse; I10 Essential (primary) hypertension; E78.5 Hyperlipidemia, unspecified; Z87.891 Personal history of nicotine dependence; Z95.5 Presence of coronary angioplasty implant and graft; K26.9 Duodenal ulcer, unspecified as acute or chronic, without hemorrhage or perforation; K29.80 Duodenitis without bleeding; K29.60 Other gastritis without bleeding; K44.9 Diaphragmatic hernia without obstruction or gangrene; K21.9 Gastro-esophageal reflux disease without esophagitis
CPT/HCPCS: 43239; 36415; 71045; 80053; 80061; 81001; 82150; 82272; 82550; 82553; 83690; 84484; 85025; 93005; 93041; 93306; 96365; 96374; 96375; 99284; G0328; G0378

== ENCOUNTER → 2017-08-18 15:05 | Outpatient (CLI) | payer OTHER, SELFPAY ==
[2017-08-18 16:08] LABS: Anion Gap 13.3 mEq/L (5-15); Blood Urea Nitrogen 21 mg/dL (7-18); Carbon Dioxide 29 mmol/L (21.0-32.0); Chloride 101 mmol/L (98-107); Creatinine,Serum 0.91 mg/dL (0.70-1.30); Estimated Glomerular Filt Rate 87 ml/min (>60); GFR (African American) 106 ML/MIN (>60); Glucose 120 mg/dL (74-106); Potassium 4.3 mmoL/L (3.5-5.1); Sodium 139 mmol/L (136-145)
== END ==
PROVIDERS: Visit Provider Physician Assistant
DX: I10 Essential (primary) hypertension (principal); I25.10 Atherosclerotic heart disease of native coronary artery without angina pectoris
CPT/HCPCS: 36415; 80048